=== PATIENT | female | born 1975 | race Caucasian/White ===

== ENCOUNTER 2021-06-21 00:26 | Day surgery (SDC) | payer BC, SELFPAY ==
[2021-06-12 15:13] VITALS: BMI 22.0
[2021-06-21 10:27] VITALS: BP 146/88; PULSE 100; RESP 16; TEMP 35.7; O2SAT 100
--- NOTE | 2021-06-21 10:27 | WPDGICN ---
Assessment and Plan Assessment and plan (1) Diarrhea: Code(s): R19.7 - Diarrhea, unspecified Status: Acute Assessment and Plan: Patient with chronic diarrhea. In the past was told she may have collagenous colitis. Plan is for follow-up colonoscopy at this time with additional biopsies. High-fiber diet is advised. Further recommendations may be given after endoscopy. An EGD will be performed to exclude celiac sprue by biopsies. Also to evaluate for heartburn. (2) Family hx of colon cancer: Code(s): Z80.0 - Family history of malignant neoplasm of digestive organs Status: Acute Assessment and Plan: Patient's brother had colon cancer. For this reason patient is advised to have follow-up colonoscopy at 5 year intervals. (3) Heartburn: Code(s): R12 - Heartburn Status: Acute Assessment and Plan: Because of chronic heartburn an EGD will be performed. Further determination on whether long-term PPI use which is beneficial will be determined after this exam. GI Consult Note Consult date/time: 06/21/21 10:27 HPI: Melonie Smith is a 45 year old female Presents for GI endoscopy. Patient has family history of colon cancer in her brother. She presents for surveillance exam for this. Patient has a history of ongoing diarrhea. Typically loose stools 3 or 4 in the morning. No bleeding is noted. Sometimes the stools are mucousy. In the past she was told that she had collagenous colitis. She presents today for follow-up colonoscopy to evaluate both diarrhea and family history. Patient additionally complains of intermittent chronic heartburn. She typically will take a 14 day course of Prilosec and does this intermittently. She uses antacids rather frequently an EGD has been requested as well. Patient denies any dysphagia or bleeding. Review of Systems Review of Systems: All systems reviewed & are unremarkable except as noted in HPI and below PMFSH Past Medical History Medical History (Updated 06/21/21 @ 10:29 by Azael James MD) Diarrhea Patient has longstanding history of diarrhea may represent infection versus IBS versus microscopic colitis. Plan to proceed with colonoscopy. Family hx of colon cancer Patient's brother had colon cancer. Along with her history of diarrhea plan is to proceed with colonoscopy. Social History Social History (Updated 05/28/21 @ 14:40 by Kenia Perkins CMA) Smoking packs per day: 0.5 Smoking cigarettes per day: 10.0 Years smoked: 20 Smoking pack-years: 10.00 Smoking status: Current every day smoker Tobacco type: cigarettes Alcohol intake: current Drinks per week: 3 Alcohol use details: socially Substance use: never Substance use type: does not use Living arrangements: alone Meds Home Medications and Allergies Home Medications Medication Instructions Recorded Confirmed Type diphenoxylate-atropine 2.5 1 tablet PO PRN PRN 05/28/21 06/12/21 History mg-0.025 mg tablet norethindrone (contraceptive) 0.35 mg BYMOUTH DAILY 06/12/21 06/12/21 History Allergies Allergy/AdvReac Type Severity Reaction Status Date / Time No Known Allergies Allergy Verified 06/21/21 10:25 Exam Narrative: Physical exam reveals patient to be alert. Vital signs stable. HEENT exam is unremarkable. Patient is anicteric. Lungs are clear to auscultation and percussion. Heart is without murmur or extra sounds. Abdominal exam bowel sounds are present soft nontender with no hepatosplenomegaly. Digital external rectal exam is normal.
--- NOTE | 2021-06-21 10:28 | WPDANESEPPF ---
Anes - Initial Pre Proc Eval Procedure: Operation Date: 06/21/21 11:00 Proposed Procedures p Esophagogastroduodenoscopy & Colonoscopy - Azael James MD Date/Time: 06/21/21 10:28 Surgeon: Azael James MD Pre Op Diagnosis: diarrhea, family hx of colon ca Patient Data Age: 45 Gender: F Height: 1.65 m Weight: 60 kg Allergies Allergy/AdvReac Type Severity Reaction Status Date / Time No Known Allergies Allergy Verified 06/21/21 10:25 Home Medications Medication Instructions Recorded Confirmed Type diphenoxylate-atropine 2.5 1 tablet PO PRN PRN 05/28/21 06/12/21 History mg-0.025 mg tablet norethindrone (contraceptive) 0.35 mg BYMOUTH DAILY 06/12/21 06/12/21 History Patient hx anesthesia problems: none Family hx anesthesia problems: none Results Review: All pre-operative results and documents have been reviewed as part of the pre-operative evaluation. [facility] Past Medical History Medical History (Updated 05/28/21 @ 15:11 by zAael James MD) Diarrhea Patient has longstanding history of diarrhea may represent infection versus IBS versus microscopic colitis. Plan to proceed with colonoscopy. Family hx of colon cancer Patient's brother had colon cancer. Along with her history of diarrhea plan is to proceed with colonoscopy. Social History Social History (Updated 05/28/21 @ 14:40 by Kenia Perkins CMA) Smoking packs per day: 0.5 Smoking cigarettes per day: 10.0 Years smoked: 20 Smoking pack-years: 10.00 Smoking status: Current every day smoker Tobacco type: cigarettes Alcohol intake: current Drinks per week: 3 Alcohol use details: socially Substance use: never Substance use type: does not use Living arrangements: alone Anes - Eval Final PreProcedure Day of Procedure 06/21/21 10:28 Patient weight: overweight Heart: regular rate and rhythm Lungs: clear to auscultation and normal air movement Airway: Mallampati scale class II Neurological: alert and oriented Last oral intake: >/= 8 hours ASA classification: II Emergent: no Anesthetic plan: proceed Anesthesia type and monitoring: general GIVS Results Review: All pre-operative results and documents have been reviewed as part of the pre-operative evaluation. Informed Consent: The patient's anesthetic plan and its attendant risks and benefits were discussed with the patient/family/POA. Questions were solicited and answers provided to the satisfaction of the patient/family/POA.
[2021-06-21] MEDS: LACTATED RINGERS 1,000 ML 150 ML IV CONT (10:47)
[2021-06-21] MEDS: BENZOCAINE (*SP) 60 ML SPRAY CAN (HURRICAINE) 1 SPRAY MUCOUS MEM (10:56)
[2021-06-21 11:22] VITALS: BP 103/68; PULSE 90; RESP 23; O2SAT 99
--- NOTE | 2021-06-21 11:22 | SUR.OPER ---
EGD START: 1059; END: 1102. COLONOSCOPY START: 1108; END: 1118.
[2021-06-21 11:32] VITALS: BP 117/74; PULSE 90; RESP 23; O2SAT 99
[2021-06-21 11:42] VITALS: BP 120/73; PULSE 90; RESP 23; O2SAT 99
== END 2021-06-21 12:00 | disposition home or self-care (01) ==
PROVIDERS: PCP Family Medicine Adolescent Medicine; Visit Provider Internal Medicine Gastroenterology
PROC: 0DJ08ZZ Inspection of Upper Intestinal Tract, Via Natural or Artificial Opening Endoscopic (ICD-10-PCS; CPT 43235; principal; 2021-06-21 11:00)
DX: R19.7 Diarrhea, unspecified (principal); Z80.0 Family history of malignant neoplasm of digestive organs; K64.8 Other hemorrhoids; F17.210 Nicotine dependence, cigarettes, uncomplicated; R12 Heartburn
CPT/HCPCS: 45380; 43239; 87081; 88305; J2704; J7120

== ENCOUNTER 2023-03-07 14:45 | Outpatient (CLI) | payer BC, SELFPAY ==
--- NOTE | ~2023-03-07 | XR_ITS ---
EXAMINATION: XR shoulder LT min 2V INDICATION: Left shoulder pain TECHNIQUE: Four views of the left shoulder are submitted. COMPARISON: None FINDINGS: Normal alignment. No fracture. Glenohumeral and acromioclavicular joint spaces are normal. Soft tissues are unremarkable. IMPRESSION: 1. No acute osseous abnormality. Reviewed, dictated and finalized at location F.
== END 2023-03-07 14:46 | disposition home or self-care (01) ==
PROVIDERS: PCP Family Medicine Adolescent Medicine; Visit Provider Nurse Practitioner Family
DX: M25.512 Pain in left shoulder (principal)
CPT/HCPCS: 73030

== ENCOUNTER 2023-06-10 14:40 | Outpatient (CLI) | payer BC, SELFPAY ==
--- NOTE | ~2023-06-10 | MM_ITS ---
EXAMINATION: MM screening asaf BI w ava HISTORY: Screening TECHNIQUE: Craniocaudal and mediolateral oblique 3-D tomosynthesis images were obtained and synthetic 2-D images were generated. CAD analysis was submitted and interpreted. COMPARISON: No prior mammogram is available for comparison at this institution. BREAST PARENCHYMAL COMPOSITION: The breasts are heterogeneously dense, which may obscure small masses . FINDINGS: There are scattered asymmetries in the right breast as well as the upper outer quadrant of the left breast. There are no suspicious calcifications. IMPRESSION: 1. Bilateral breast asymmetries. 2. Recommend comparison to prior outside mammograms. BI-RADS Category 0: Incomplete: Needs additional imaging evaluation. Reviewed, dictated and finalized at location A. TEACHER
== END 2023-06-10 14:41 | disposition home or self-care (01) ==
LOC: ANHIMG 14:42
PROVIDERS: PCP Family Medicine Adolescent Medicine; Visit Provider Nurse Practitioner
DX: Z12.31 Encounter for screening mammogram for malignant neoplasm of breast (principal); R92.8 Other abnormal and inconclusive findings on diagnostic imaging of breast
CPT/HCPCS: 77063; 77067

== ENCOUNTER 2023-08-06 12:05 | Outpatient (CLI) | payer BC, SELFPAY ==
--- NOTE | ~2023-08-06 | MMUS_ITS ---
EXAMINATION: MM diagnostic asaf BI w ava, US breast BI limited HISTORY: Bilateral focal asymmetries on screening mammogram TECHNIQUE: Additional 3-D tomosynthesis images of the breasts were performed and synthetic 2-D images were generated. CAD analysis was submitted and interpreted. High resolution limited bilateral breast ultrasound was performed. COMPARISON: 06/10/2023, 12/08/2015 BREAST PARENCHYMAL COMPOSITION: The breasts are heterogeneously dense, which may obscure small masses . FINDINGS: MAMMOGRAPHIC FINDINGS: Focal asymmetries in the upper outer quadrants of the breasts somewhat disperse with spot compression . No suspicious mass, calcification, or architectural distortion are identified in either breast. ULTRASOUND: There is no solid or cystic mass in the vicinity of the areas of focal asymmetry in either breast. IMPRESSION: 1. No mammographic or sonographic evidence of malignancy. 2. Recommend routine screening mammography in one year. BI-RADS Category 2: Benign finding(s). Reviewed, dictated and finalized at location A. H MACHINE OPERATOR IMPRESSION: 1. No mammographic or sonographic evidence of malignancy. 2. Recommend routine screening mammography in one year. BI-RADS Category 2: Benign finding(s).
== END 2023-08-06 12:06 | disposition home or self-care (01) ==
PROVIDERS: PCP Family Medicine Adolescent Medicine; Visit Provider Obstetrics & Gynecology Gynecology
DX: R92.8 Other abnormal and inconclusive findings on diagnostic imaging of breast (principal)
CPT/HCPCS: 76642; 77062; 77066; G0279

== ENCOUNTER 2024-10-22 13:55 | Outpatient (CLI) | payer BC, SELFPAY ==
--- NOTE | ~2024-10-22 | MM_ITS ---
EXAMINATION: MM screening asaf BI w ava HISTORY: Screening TECHNIQUE: Craniocaudal and mediolateral oblique 3-D tomosynthesis images were obtained and synthetic 2-D images were generated. CAD analysis was submitted and interpreted. COMPARISON: Comparison to multiple prior studies sequentially, with oldest reviewed study dated 01/2016. BREAST PARENCHYMAL COMPOSITION: Dense: The breasts are heterogeneously dense, which may obscure small masses FINDINGS: There is no evidence of suspicious mass, calcification, or architectural distortion to sugg est malignancy in either breast. There has been no suspicious interval change. IMPRESSION: 1. No mammographic evidence of malignancy. 2. Recommend routine screening mammography in one year. BI-RADS Category 1: Negative Reviewed, dictated and finalized at location B.
== END 2024-10-22 13:56 | disposition home or self-care (01) ==
LOC: ANHIMG 13:57
PROVIDERS: PCP Family Medicine Adolescent Medicine; Visit Provider Obstetrics & Gynecology Gynecology
DX: Z12.31 Encounter for screening mammogram for malignant neoplasm of breast (principal)
CPT/HCPCS: 77063; 77067

== ENCOUNTER 2025-03-03 14:50 | Outpatient (CLI) | payer BC, SELFPAY ==
--- NOTE | ~2025-03-03 | DEXA_ITS ---
Bone Density Report Name: THOMAS BANUELOS Age: 49 Sex: Female Ethnicity: White Date of : 1975 Indication: postmenopausal; screening for osteoporosis; inflammatory bowel disease; history of glucocorticoids; Referring Provider: AL ULLOA Study: Bone densitometry was performed. Exam Date: March 03, 2025 Accession number: [id number] Bone Density: Region BMD T-score Z-score Classification AP Spine(L1-L4) 1.156 1.0 1.8 Normal Femoral Neck (Left) 0.877 0.2 1.0 Normal Total Hip (Left) 0.995 0.4 0.9 Normal Femoral Neck (Right) 0.840 -0.1 0.7 Normal Total Hip (Right) 0.958 0.1 0.6 Normal Total Hip Mean 0.977 0.3 0.8 Normal World Health Organization criteria for BMD impression classify patients as: Normal (T-score at or above -1.0), Osteopenia (T-score between -1.0 and -2.5), or Osteoporosis (T-score at or below -2.5). 10-year Fracture Risk: FRAX not reported because: All T-scores for Spine Total, Hip Total, Femoral Neck at or above -1.0 Clinical Information Provided by Patient: Smokes Has taken Glucocorticoids Has the following medical conditions: Inflammatory bowel diseases Patient maximum height was 65.5 No regular weight bearing exercise Drinks caffeinated beverages Onset of menses at age 12 Number of children 0 Impression: The patient has normal bone mass. The patient has risk factors, including: smoking, history of glucocorticoid therapy. Discussion: BONE DENSITY IS ABOVE THE MINIMUM DESIRABLE LEVEL AT ALL SKELETAL SITES TESTED. This patient?s bone mineral density is above the minimum desirable level (T-score -1.0 or better) at all sites measured. The patient should follow a healthful lifestyle (good nutrition with adequate calcium and vitamin D, and appropriate weight-bearing exercise). Follow-Up: Consider repeating this study in 5 years or sooner if there is some new clinical indication. Reported by: COSTA on 03/03/2025 3:30:00 PM. Reviewed, dictated and finalized at location A.
== END 2025-03-03 14:51 | disposition home or self-care (01) ==
LOC: ANHIMG 14:51
PROVIDERS: PCP Family Medicine Adolescent Medicine; Visit Provider Nurse Practitioner Family
DX: Z13.820 Encounter for screening for osteoporosis (principal); Z79.52 Long term (current) use of systemic steroids
CPT/HCPCS: 77080